=== PATIENT | female | born 1985 | race Caucasian/White ===

== ENCOUNTER 2019-03-13 19:44 | Emergency (ER) | payer OTHER ==
[~2019-03-13] VITALS: Ht 175.3 cm; Wt 95.3 kg
[2019-03-13 21:44] LABS: ABSOLUTE NEUTROPHILS 9.2 thou/uL (1.4-8.2); BASOPHILS 0.4 % (0.0-2.0); EOSINOPHILS 0.6 % (0.0-3.0); HEMATOCRIT 46.5 % (37.0-47.0); HEMOGLOBIN 15.3 gm/dL (12.0-15.0); LYMPHOCYTES 18.9 % (24.0-44.0); MCH 31.7 pg (26.0-34.0); MCHC 32.9 g/dL (28.0-37.0); MCV 96.1 fL (80.0-100.0); MONOCYTES 4.1 % (1.0-8.0); RBC 4.83 mil/uL (4.20-5.00); RDW 13.1 % (10.5-14.5); WBC 12.1 thou/uL (4.0-11.0)
[2019-03-13 22:04] LABS: LARGE PLATELETS OCCASIONAL; PLATELET COUNT 266 thou/uL (150-400)
[2019-03-13 23:50] VITALS: BP 124/64
== END 2019-03-13 23:50 | disposition home or self-care (01) ==
LOC: ER 19:44
PROVIDERS: Nurse Practitioner
DX: O20.0 Threatened abortion (principal); Z3A.01 Less than 8 weeks gestation of pregnancy